=== PATIENT | female | born 1960 | race Two or more races ===

== ENCOUNTER 2018-05-22 07:08 | Emergency (ER) | payer OTHER ==
[~2018-05-22] VITALS: Ht 152.4 cm; Wt 61.2 kg
--- NOTE | 2018-05-22 07:21 | NUR ---
PT AMBULATORY TO ER BED 10. C/O DIZZINESS, NAUSEA AND VOMITING THAT STARTED THIS MORNING. DENIES ABDOMINAL PAIN. PLACED ON MONITOR. VSS. [employer]. AWAITING MD FRASER.
--- NOTE | 2018-05-22 07:41 | NUR ---
DR PALMER AT BEDSIDE FOR EVAL.
[2018-05-22] MEDS ORDERED: ONDANSETRON 4 MG TAB.RAPDIS ONE (07:43)
[2018-05-22] MEDS ORDERED: MECLIZINE HCL 25 MG TABLET ONE ×2 (07:43→07:54)
[2018-05-22] MEDS ORDERED: MECLIZINE HCL 12.5 MG TABLET PO ONE (08:00)
[2018-05-22] MEDS ORDERED: ONDANSETRON 4 MG TAB.RAPDIS SL ONE (08:00)
--- NOTE | 2018-05-22 10:34 | NUR ---
Patient discharged to home in stable condition. Written and verbal after care instructions given. Patient verbalizes understanding of instruction.
--- NOTE | 2018-05-22 10:34 | NUR ---
IV removed. Catheter intact and site benign. Pressure and 4x4 applied to site. No bleeding noted.
[2018-05-22 10:36] VITALS: BP 138/85
== END 2018-05-22 10:36 | disposition home or self-care (01) ==
LOC: ER 07:15
DX: H81.10 Benign paroxysmal vertigo, unspecified ear (principal); I10 Essential (primary) hypertension; E78.00 Pure hypercholesterolemia, unspecified; R11.10 Vomiting, unspecified; Z98.890 Other specified postprocedural states
CPT/HCPCS: 70450; 93005; 99284; A4606; J8597; Q0162; Z7610